=== PATIENT | male | born 1965 | race Caucasian/White ===

== ENCOUNTER 2018-06-22 13:57 | Emergency (ER) | payer OTHER ==
[~2018-06-22] VITALS: Ht 167.6 cm; Wt 68.2 kg
[2018-06-22 14:10] VITALS: Ht 167.6 cm; Wt 68.2 kg
[2018-06-22] MEDS ORDERED: CEFTRIAXONE 1 GM/50 ML (PMX) 50 ML IVPB STA (15:49)
[2018-06-22] MEDS ORDERED: TRIMETHOPRIM/SULFAMETHOX (DS) TAB PO ONE (16:00)
[2018-06-22] MEDS ORDERED: SULF1TAB31 PO (17:42)
[2018-06-22] MEDS ORDERED: CEPH-443 PO (17:42)
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
[2018-06-22 18:08] VITALS: BP 159/90; PULSE 85; RESP 18
== END 2018-06-22 18:09 | disposition home or self-care (01) ==
LOC: FTE 13:57
DX: M86.9 Osteomyelitis, unspecified (principal); F17.210 Nicotine dependence, cigarettes, uncomplicated; T81.40XA Infection following a procedure, unspecified, initial encounter; Y79.2 Prosthetic and other implants, materials and accessory orthopedic devices associated with adverse incidents
CPT/HCPCS: 36415; 73090; 80048; 85025; 85651; 86140; 87070; 96365; J0696; Z7502; Z7610